=== PATIENT | female | born 2000 ===

== ENCOUNTER → 2023-04-25 | Outpatient (CLI) | payer OTHER ==
[2023-04-29 21:09] LABS: IMMUNOGLOBULIN A, QN, SERUM 229 mg/dL (87-352); T-TRANSGLUTAMINASE (TTG) IGA <2 U/mL (0-3); T-TRANSGLUTAMINASE (TTG) IGG 2 U/mL (0-5)
== END | disposition home or self-care (01) ==
LOC: LAB SHORT 18:25 → LAB 18:25
PROVIDERS: Family Medicine
DX: R14.0 Abdominal distension (gaseous) (principal)
CPT/HCPCS: 82784; 83516; 86258; 86364